=== PATIENT | female | born 1965 | race African-American/Black ===

== ENCOUNTER 2023-05-02 10:18 | Emergency (ER) | payer OTHER, SELFPAY ==
[2023-05-02] VITALS (9 sets, daily range): BP systolic 115–150; BP diastolic 68–84; PULSE 61–72; RESP 12–19; TEMP 36.4; O2SAT 100
--- NOTE | ~2023-05-02 | CT_ITS ---
CT ANGIOGRAM NECK AND HEAD History: Vertigo. Technique: Serial spiral axial images through the head and neck were obtained during arterial phase I V injection of 100 cc of Omnipaque 350. 3-D postprocessing and MIP images were then reconstructed on the remote workstation. Dose reduction technique was used on this scan by utilizing automated exposur e control and iterative reconstruction technique. The dose-length product (DLP) was 1149.20 mGy-cm. CTA neck findings: Bilateral vertebral arteries are patent. Bilateral common carotid, internal carot id, and external carotid arteries are patent. No large vessel occlusion. No stenosis or aneurysm. The proximal right internal carotid artery demonstrates 0% stenosis relative to the normal distal artery lumen diameter. The proximal left internal carotid artery demonstrates 0% stenosis relative to the n ormal distal artery lumen diameter. CTA head findings: Distal vertebral arteries, basilar artery, and posterior cerebral arteries are pat ent. Distal internal carotid arteries, middle cerebral arteries, and anterior cerebral arteries are p atent. No large vessel occlusion. No stenosis or aneurysm. Impression: No significant abnormality seen. Reviewed, dictated and finalized at location . Impression: No significant abnormality seen.
--- NOTE | ~2023-05-02 | XR_ITS ---
XR chest 1V DATE: 05/02/2023 11:37 INDICATION: Syncope TECHNIQUE: AP chest COMPARISON: None FINDINGS: This is a limited AP apical lordotic single portable view of the chest. Heart size is normal. No hilar or mediastinal enlargement. No pulmonary infiltrate or consolidation, pleural effusion or pulmonary vascular congestion or pneumo thorax is detected. Osteopenia. IMPRESSION: No active cardiopulmonary disease Reviewed, dictated and finalized at location A.
--- NOTE | ~2023-05-02 | CT_ITS ---
EXAMINATION: CT brain wo con DATE: 05/02/2023 11:32 INDICATION: Syncope, dizziness. TECHNIQUE: Computed tomography (CT) of the head was performed without intravenous contrast. The mA wa s adjusted according to patient size. Iterative reconstruction technique was employed. Exam dose: 60 5.33 mGy-cm total exam DLP. COMPARISON: None FINDINGS: No intracranial mass lesion or hemorrhage or cerebrovascular accident. No midline shift or mass effect. Normal mosley-white matter differentiation. Normal ventricular size. No subdural or epidur al hematoma. No fracture or bone destruction of the cranial vault. The mastoid air cells and included paranasal sinuses are unremarkable. IMPRESSION: No significant abnormality Reviewed, dictated and finalized at [facility]. Reviewed, dictated and finalized at location A. IMPRESSION: No significant abnormality
--- NOTE | 2023-05-02 10:30 | ECG_ITS ---
Measurements Intervals [place] Rate: 60 P: 40 MO: 147 QRS: 8 QRSD: 98 T: -26 QT: 397 QTc: 399 Interpretive Statements SINUS RHYTHM INCOMPLETE RIGHT BUNDLE BRANCH BLOCK [90+ ms QRS DURATION, TERMINAL R IN V1/V2, 40+ ms S IN I/aVL/V4/V5/V6] INFERIOR ST AND T-WAVE ABNORMALITY, CONSIDER ISCHEMIA ABNORMAL ECG NO PREVIOUS ECG AVAILABLE FOR COMPARISON Electronically Signed On 05-03-2023 10:32:25 CDT by Isaiah Rhodes M.D.
--- NOTE | 2023-05-02 10:48 | ED.SYNCOPE ---
HPI - Syncope General Chief Complaint: Syncope Stated Complaint: SYNCOPY Time Seen by Provider: 05/02/23 10:40 History of Present Illness HPI narrative: 58-year-old female presents to the emergency room today for severe dizziness and lightheadedness. She was feeling very dizzy when she was trying to get up this morning. She had family help her to sit up on the side of the bed. She got very lightheaded, nauseated and had sweats. They laid her back down. She says that she has had dizziness/room spinning sensation ever since. She says that her head just feels funny. Denies having any pain symptoms. No shortness of breath. Related Data Allergies Allergy/AdvReac Type Severity Reaction Status Date / Time No Known Allergies Allergy Verified 05/02/23 10:29 Review of Systems Review of Systems: CONSTITUTIONAL: Denies fever, chills, reports diaphoresis prior to coming in. EYES: Denies visual changes, redness, or discharge. ENT: Denies rhinorrhea, congestion, sore throat, or otalgia. CARDIOVASCULAR: Denies chest pain, palpitations, or edema. RESPIRATORY: Denies cough or dyspnea. GASTROINTESTINAL: Denies abdominal pain, vomiting, or diarrhea. Had some nausea prior to coming in. GENITOURINARY: Denies dysuria or hematuria. SKIN: Denies rash or itching. MUSCULOSKELETAL: Denies back pain, joint pain, or myalgia. NEUROLOGIC: Dizziness/vertigo. No headache PSYCHIATRIC: Denies anxiety or depression. Exam Narrative: GENERAL: Well-appearing, well-nourished, and in no acute distress. HEAD: Normocephalic, atraumatic. EYES: PERRL and EOMI. ENT: Nares clear, no rhinorrhea or epistaxis. Mucous membranes moist. Oropharynx without tonsillar hypertrophy exudate or other lesions. Bilateral TMs pearly mosley nonbulging NECK: Supple. No adenopathy or masses. CHEST: Clear to auscultation. No respiratory distress. No wheezes rales or rhonchi HEART: Regular rate and rhythm. No murmur heard. Normal peripheral pulses. ABDOMEN: Soft, nontender, nondistended, normal active bowel sounds. EXTREMITIES: Normal range of motion. No edema. SKIN: Warm, dry, no rash. NEURO: No focal deficits. Alert and oriented x3. PSYCH: Normal mood and affect. Course Vital Signs Vital signs: Vital Signs Temperature 36.4 C 05/02/23 10:17 Pulse Rate 72 05/02/23 10:17 Respiratory Rate 14 05/02/23 10:17 Blood Pressure 135/72 05/02/23 10:17 Pulse Oximetry 100 05/02/23 10:17 Oxygen Delivery Room Air 05/02/23 10:17 Temperature 36.4 C 05/02/23 10:17 Pulse Rate 65 05/02/23 13:50 Respiratory Rate 13 05/02/23 13:50 Blood Pressure 115/72 05/02/23 13:50 Pulse Oximetry 100 05/02/23 13:50 Oxygen Delivery Room Air 05/02/23 10:30 MDM - Syncope MDM Narrative Medical decision making narrative: Pt reports improvement in symptoms since arrival. No significant findings on work up. Will discharge patient to home. Advised close follow up with primary care in 2-3 days. Lab Data Attestation: I reviewed the patient's lab results. 05/02/23 11:16 05/02/23 11:16 Labs: Lab Results 05/02/23 05/02/23 05/02/23 Range/Units 11:16 11:16 11:16 WBC 4.7 (4.5-10.0) K/mm3 RBC 4.06 L (4.2-5.4) M/mm3 Hgb 11.7 L (12.0-15.0) g/dL Hct 36.9 L (37.0-47.0) % MCV 90.9 (80-100) fl MCH 28.8 (26-34) pg MCHC 31.7 L (32-36) g/dl RDW 11.8 (11.5-14.5) % Plt Count 292 (150-375) k/mm3 MPV 10.8 H (7.4-10.4) fl Immature Gran % (Auto) 0.2 (0-0.5) % Neut % (Auto) 63.1 (45.5-73.1) % Lymph % (Auto) 27.2 (18.3-44.2) % [place] % (Auto) 7.4 (2.6-8.5) % Eos % (Auto) 1.5 (0-4.4) % Baso % (Auto) 0.6 (0.2-1.2) % Lymph # (Auto) 1.29 (0.9-3.2) K/mm3 [place] # (Auto) 0.4 (0.1-0.6) K/mm3 Eos # (Auto) 0.1 (0-0.3) K/mm3 Baso # (Auto) 0.0 (0.0-0.1) K/mm3 Abs Immat Gran (auto) 0.01 (0.00-0.031) K/mm3 Absolute Neuts (auto) 3.0 (1.3-6.7)
[2023-05-02] MEDS: MECLIZINE HCL 25 MG TABLET PO (10:59)
[2023-05-02] MEDS: SODIUM CHLORIDE 0.9% IV 1,000 ML 999 ML IV CONT (11:00)
[2023-05-02 11:23] LABS: Basophils Percent Auto 0.6 % (0.2-1.2); Eosinophils Absolute Auto 0.1 K/mm3 (0-0.3); Eosinophils Percent Auto 1.5 % (0-4.4); Hematocrit 36.9 % (37.0-47.0); Hemoglobin 11.7 g/dL (12.0-15.0); Immature Granulocyte Absolute 0.01 K/mm3 (0.00-0.031); Immature Granulocyte Percent A 0.2 % (0-0.5); Lymphocytes Absolute Auto 1.29 K/mm3 (0.9-3.2); Lymphocytes Percent Auto 27.2 % (18.3-44.2); Mean Corpuscular HGB Conc 31.7 g/dl (32-36); Mean Corpuscular Hemoglobin 28.8 pg (26-34); Mean Corpuscular Volume 90.9 fl (80-100); Mean Platelet Volume 10.8 fl (7.4-10.4); Monocytes Absolute Auto 0.4 K/mm3 (0.1-0.6); Monocytes Percent Auto 7.4 % (2.6-8.5); Neutrophils Percent Auto 63.1 % (45.5-73.1); Platelet Count Result 292 k/mm3 (150-375); Red Blood Count 4.06 M/mm3 (4.2-5.4); Red Cell Distribution Width 11.8 % (11.5-14.5); White Blood Count 4.7 K/mm3 (4.5-10.0)
[2023-05-02 11:33] LABS: Alanine Aminotransferase 18 U/L (6-35); Albumin Level 4.1 g/dL (3.5-5.1); Alkaline Phosphatase 76 U/L (38-126); Anion Gap 4 mmol/L (8-16); Aspartate Amino Transferase 23 U/L (14-36); Bilirubin,Total 0.4 mg/dL (0.2-1.3); Blood Urea Nitrogen 16 mg/dL (7-17); Calcium 8.6 mg/dL (8.4-10.2); Carbon Dioxide 30 mmol/L (22-30); Chloride 106 mmol/L (98-107); Estimated CRCL calculation 68 ml/min; Estimated Glomerular Filt Rate > 60; Glucose 104 mg/dL (65-110); Magnesium 2.1 mg/dL (1.6-2.3); Potassium 3.9 mmol/L (3.4-5.0); Sodium 140 mmol/L (137-145)
[2023-05-02 11:34] LABS: INR 0.9; Partial Thromboplastin Time 25.4 SECONDS (22.3-36.8); Prothrombin Time 12.6 Seconds (11.1-14.7)
[2023-05-02 11:38] LABS: D Dimer < 0.27 ug/mL (<0.48)
[2023-05-02 11:44] LABS: NT Pro B Type Natriuretic Pept 71 pg/mL (19.9-100); Troponin I < 0.012 ng/mL (0.000-0.034)
[2023-05-02 13:14] LABS: Appearance Urine Clear (Clear); Bilirubin Urine Negative (Negative); Blood Urine Negative (Negative); Color Urine Yellow (Yellow); Glucose Urine UA Negative (Negative); Ketones Urine Negative (Negative); Leukocyte Esterase Ur Negative LEU/UL (Negative); Nitrate Urine Negative (Negative); Protein Urine Negative (Negative); Specific Grav Ur 1.006 (1.001-1.035); Urobilinogen Urine 0.2 mg/dL (<2.0); pH Urine 7.5 (5.0-9.0)
[2023-05-02 13:20] LABS: Add Urine Microscopic? NO
--- NOTE | 2023-05-20 11:00 | PC.NURSE ---
LATE ENTRY This note is being entered to document information to the patient's record. The following information was omitted on [05/02/23], by [Marlen Coronel RN]. NS fluids were stopped on 05/02/23.
== END 2023-05-02 15:30 | disposition home or self-care (01) ==
PROVIDERS: Preventive Medicine Aerospace Medicine; Emergency Provider Nurse Practitioner Family
DX: R42 Dizziness and giddiness (principal)
CPT/HCPCS: 36415; 70450; 70496; 70498; 71045; 80053; 81003; 83735; 83880; 84484; 85025; 85380; 85610; 85730; 93005; 96360; 99284; A9270; J7030; Q9967